=== PATIENT | female | born 1960 | race Caucasian/White ===

== ENCOUNTER → 2022-01-21 09:29 | Outpatient (CLI) | payer BC, SELFPAY ==
--- NOTE | 2022-01-21 09:32 | DI.US.S_ITS ---
PROCEDURE: US THYROID INDICATIONS: SENSATION OF MASS/TIGHTENED MUSCLE LEFT NECK TECHNIQUE: Real-time scanning was performed of the thyroid gland, with image documentation. COMPARISON: None. FINDINGS: Right: Thyroid lobe measures 5.3 x 1.6 x 1.5 cm, and is homogeneous in echotexture. Left: Thyroid lobe measures 5.9 x 1.7 x 1.3 cm, and is homogenous in echotexture. Isthmus: 4.2 mm thick. IMPRESSION: Thyroid demonstrates no focal masses. No mass is identified at the area palpable concern. Dictated by: Indy Willard M.D. on 01/21/2022 at 12:06 Approved by: Indy Willard M.D. on 01/21/2022 at 12:07
== END ==
PROVIDERS: PCP Physician Assistant; Referring Provider Physician Assistant; Visit Provider Physician Assistant
DX: J39.2 Other diseases of pharynx (principal); R09.89 Other specified symptoms and signs involving the circulatory and respiratory systems
CPT/HCPCS: 76536